=== PATIENT | male | born 1950 | race Caucasian/White ===

== ENCOUNTER → 2024-07-09 09:14 | Outpatient (REF) | payer MEDICARE, OTHER, SELFPAY | LOC: HWRCS 09:14 | PROVIDERS: ATTENDING PHYSICIAN Internal Medicine Cardiovascular Disease; FAMILY PHYSICIAN Family Medicine | DX: I35.1 Nonrheumatic aortic (valve) insufficiency (principal) | CPT/HCPCS: 93306 ==

== ENCOUNTER 2024-12-22 14:52 | Emergency (ER) | payer MEDICARE, OTHER, SELFPAY ==
[2024-12-22] VITALS (9 sets, daily range): BP systolic 128–171; BP diastolic 67–88; BMI 25.7
[2024-12-22 15:49] LABS: % Basophils 0.2 % (0-2); % Immature Granulocytes 0.2 % (0-0.5); % Lymphocytes 18.7 % (20.5-51.1); % Monocytes 11.1 % (1.7-9.3); % Neutrophils 68.8 % (42.2-75.2); Absolute Eosinophils 0.1 10^3/uL (0-0.7); Absolute Lymphocytes 1.1 10^3/uL (1.2-3.4); Absolute Monocytes 0.7 10^3/uL (0.1-0.6); Absolute Neutrophils 4.1 10^3/uL (1.4-6.5); Hematocrit 42.8 % (39.0-52.0); Mean Corpuscular Hgb 32.3 pg (27.0-31.0); Mean Corpuscular Volume 92.2 fL (80.0-94.0); Nucleated Red Blood Cells % 0 % (-); Platelet Count 192 10^3/uL (130-400); Red Blood Cell Count 4.64 10^6/uL (4.70-6.10); Red Cell Dist. Width 12.4 % (11.5-14.5); White Blood Cell Count 5.9 10^3/uL (4.8-10.8)
[2024-12-22 16:02] LABS: ALT (SGPT) 21 U/L (0-50); AST (SGOT) 26 U/L (17-59); Albumin 4.4 g/dl (3.5-5.0); Alkaline Phosphatase 69 U/L (38-126); Blood Urea Nitrogen 19 mg/dl (9-20); Calcium 10.2 mg/dl (8.4-10.2); Carbon Dioxide 27 mmol/L (22-30); Chloride 109 mmol/L (98-107); Glucose 144 mg/dl (70-99); Sodium 144 mmol/L (135-145); Total Bilirubin 1.4 mg/dl (0.2-1.3); Total Protein 7.2 g/dl (6.3-8.2); eGFR > 60.00
[2024-12-22 16:14] LABS: Troponin I < 0.012 ng/ml
--- NOTE | 2024-12-22 18:14 | ED.GENMED ---
History of Present Illness
<RAMIRO Larson - Last Filed: 12/22/24 19:15>
General
Chief Complaint: Chest Pain
Source: patient
Exam Limitations: none
Time Seen by Provider: 12/22/24 17:51
Nursing documentation reviewed up to this point in time: agreed with
History of Present Illness
History of Present Illness:
Patient is a 74-year-old male with past medical history of ascending aortic aneurysm followed by cardiology presents to the ER for evaluation. Patient reports he ate crackers in bed last night and around 2 AM noticed some burning in his epigastric
area. Is been intermittent throughout the day and is very mildly there. He took Prevacid prior to arrival and feels that it is improving. He denies any chest pain .shortness of breath. back pain. He reports he normally walks daily and walked
his mile today without any symptoms.
Past History
<RAMIRO Larson - Last Filed: 12/22/24 19:15>
Past History
ED Past Medical History: GERD, HTN, Valvular disease (/yivraw-[id number] on echo from 09/2018), Psychiatric (anxiety) and Other (GI bleed)
ED Past Surgical History: Other (Agree with documented past surgical history)
Social History
Tobacco: Non-smoker
Alcohol: Occasional
Personal: Single
Living: with family
Employment: Retired
Phy Exam
<RAMIRO Larson - Last Filed: 12/22/24 19:15>
General Physical Exam
General age: appears stated age
General Skin: warm and dry
General Habitus: normal
General Mental: alert
General Hydration: appears well hydrated
Cardiovascular Exam
Cardiovascular Exam: regular rate/rhythm, no murmur and normal peripheral pulses
Pulmonary Exam
Pulmonary Exam: lungs clear and no respiratory distress
Neurological Exam
Neurological Exam: alert and oriented x3
Musculoskeletal Exam
Musculoskeletal Exam: full ROM
Skin Exam
Skin Exam: normal color and warm/dry
Psychiatric Exam
Psychiatric Exam: normal mood/affect
Scores
<Lonny Delacruz DO - Last Filed: 12/24/24 12:06>
Heart Score for Chest Pain Patients
STEMI patient?: No
History: Slightly or Non-Suspicious
ECG: Nonspecific Repolarization
Age: >/= 65 years
Risk Factors: >/= 3 Risk Factors or History of CAD
Troponin: >1 - <3 x Normal Limit
Heart Score for Chest Pain Patients: 6
Heart Score Risk: 20.3% MACE over next 6 weeks
Course
<RAMIRO Larson - Last Filed: 12/22/24 19:15>
Orders/Labs/Results
Orders:
Orders
12/22/24 14:52
ECG [Electrocardiogram (*1)] Urgent
Reason for Study: Chest Pain
12/22/24 14:53
EKG- Treatment ONCE
12/22/24 15:37
Complete Blood Count/With Diff Urgent
Comprehensive Metabolic Panel Urgent
Troponin I Urgent
12/22/24 18:34
CT Chest Angio W/wo Iv Contras Urgent
Comment:
Reason For Exam: known aneurysm/ MS chest pain
12/22/24 18:38
Cardiac Monitoring- Treatment ONCE
IV Insert/Care/Rem.- Treatment PRN
0.9% Sodium Chloride 1000 ml [Nss] 1,000 ml IV BOLUS
12/22/24 22:28
Mag Hydrox/Al Hydrox/Simeth [Maalox] 30 ml Phenobarb/Hyoscy/Atropine/Scop [] 10 ml Viscous Lidocaine 2% [Xylocaine Viscous Cup] 10 ml PO NOW
12/22/24 22:32
Mag Hydrox/Al Hydrox/Simeth [Maalox] 30 ml .ROUTE .STK-MED ONE
Phenobarb/Hyoscy/Atropine/Scop [] 10 ml .ROUTE .STK-MED ONE
Viscous Lidocaine 2% [Xylocaine Viscous Cup] 15 ml .ROUTE .STK-MED ONE
Abnormal Lab Results
12/22/24
15:37
RBC 4.64 L 10^6/uL
(4.70-6.10)
MCH 32.3 H pg
(27.0-31.0)
Absolute Lymphs (auto) 1.1 L 10^3/uL
(1.2-3.4)
Absolute Monos (auto) 0.7 H 10^3/uL
(0.1-0.6)
Lymphocytes % 18.7 L %
(20.5-51.1)
Monocytes % 11.1 H %
(1.7-9.3)
Chloride 109 H mmol/L
(98-107)
Glucose 144 H mg/dl
(70-99)
Total Bilirubin 1.4 H mg/dl
(0.2-1.3)
12/22/24 15:37
12/22/24 15:37
Vital Signs
Initial and Last Documented VS:
Initial Vital Signs
Temp Pulse Resp BP Pulse Ox
98.5 F 94 16 168/80 99
12/22/24 15:20 12/22/24 15:20 12/22/24 15:20 12/22/24 15:20 12/22/24 15:20
Last Documented Vital Signs
Temp Pulse Resp BP Pulse Ox
98.5 F 74 13 157/68 97
12/22/24 15:20 12/22/24 23:00 12/22/24 23:00 12/22/24 23:00 12/22/24 23:00
Christinalt;Lonny Delacruz DO - Last Filed: 12/24/24 12:06>
Orders/Labs/Results
Orders:
Orders
12/22/24 14:52
ECG [Electrocardiogram (*1)] Urgent
Reason for Study: Chest Pain
12/22/24 14:53
EKG- Treatment ONCE
12/22/24 15:37
Complete Blood Count/With Diff Urgent
Comprehensive Metabolic Panel Urgent
Troponin I Urgent
12/22/24 18:34
CT Chest Angio W/wo Iv Contras Urgent
Comment:
Reason For Exam: known aneurysm/ MS chest pain
12/22/24 18:38
Cardiac Monitoring- Treatment ONCE
IV Insert/Care/Rem.- Treatment PRN
0.9% Sodium Chloride 1000 ml [Nss] 1,000 ml IV BOLUS
12/22/24 22:28
Mag Hydrox/Al Hydrox/Simeth [Maalox] 30 ml Phenobarb/Hyoscy/Atropine/Scop [] 10 ml Viscous Lidocaine 2% [Xylocaine Viscous Cup] 10 ml PO NOW
12/22/24 22:32
Mag Hydrox/Al Hydrox/Simeth [Maalox] 30 ml .ROUTE .STK-MED ONE
Phenobarb/Hyoscy/Atropine/Scop [] 10 ml .ROUTE .STK-MED ONE
Viscous Lidocaine 2% [Xylocaine Viscous Cup] 15 ml .ROUTE .STK-MED ONE
Abnormal Lab Results
12/22/24
15:37
RBC 4.64 L 10^6/uL
(4.70-6.10)
MCH 32.3 H pg
(27.0-31.0)
Absolute Lymphs (auto) 1.1 L 10^3/uL
(1.2-3.4)
Absolute Monos (auto) 0.7 H 10^3/uL
(0.1-0.6)
Lymphocytes % 18.7 L %
(20.5-51.1)
Monocytes % 11.1 H %
(1.7-9.3)
Chloride 109 H mmol/L
(98-107)
Glucose 144 H mg/dl
(70-99)
Total Bilirubin 1.4 H mg/dl
(0.2-1.3)
12/22/24 15:37
12/22/24 15:37
Vital Signs
Initial and Last Documented VS:
Initial Vital Signs
Temp Pulse Resp BP Pulse Ox
98.5 F 94 16 168/80 99
12/22/24 15:20 12/22/24 15:20 12/22/24 15:20 12/22/24 15:20 12/22/24 15:20
Last Documented Vital Signs
Temp Pulse Resp BP Pulse Ox
98.5 F 74 13 157/68 97
12/22/24 15:20 12/22/24 23:00 12/22/24 23:00 12/22/24 23:00 12/22/24 23:00
<RAMIRO Larson - Last Filed: 12/22/24 19:15>
MDM/Problems Addressed
MDM/Problems Addressed:
Patient is a 74-year-old male with known abdominal aortic aneurysm hypertension moderate to severe aortic regurgitation and mild tricuspid regurgitation presents to the ER for evaluation of midsternal chest burning. He notices at 2:30 in the
morning. He reports he was eating crackers last night and questions that this is likely reflux. He complains of very minimal burning discomfort. He denies any actual chest pain he denies any abdominal pain. Denies any radiation to back. His
cardiac event is negative no acute rise in EKG however with no aneurysm Case reviewed with ED physician will CAT scan .
If CAT scan is negative which is likely this is most likely reflux.
1914: Care of patient this time transferred to DR Delacruz.
<RAMIRO Larson - Last Filed: 12/22/24 19:15>
Data Reviewed
Review of Other/Old Records Reveals: Radiology Studies (CAT scan reviewed from July 2023 shows ectasia ascending aorta 4.1 cm ) and Other (Echo from June 2024 reviewed shows EF of 55 to 60%)
<Lonny Delacruz DO - Last Filed: 12/24/24 12:06>
*Critical Care Note
Total Time (30-74mins, 75-104mins- exclusive of procedures): Not Applicable
ED Attending Note
<RAMIRO Larson - Last Filed: 12/22/24 19:15>
-
Portions of this chart may have been created with voice recognition software.� Occasional wrong word or��sound alike� substitutions may have occurred due to the inherent limitations of voice recognition software.
<Lonny Delacruz DO - Last Filed: 12/24/24 12:06>
ED Attending Note
Patient seen and examined by attending physician: Yes
I performed the substantive portion of visit, reviewed & personally made and approve the management plan that is documented in note by myself or OSCAR.: Yes
ED Attending Note:
Seen with TELEPHONE CLERK examined independently agree with assessment and plan workup noted, patient feeling better after GI cocktail follow-up with his PCP and cardiology
Discharge Plan
Departure
Patient Disposition: Home (Routine Discharge)
Date of Disposition: 12/22/24
Time of Disposition: 23:13
Patient with high blood pressure during this ER visit?: No
Covid-19: Not Applicable
Discharge Problem:
GERD
Instructions: Acid Reflux and GERD in Adults (DC), Chest Pain CBC Follow Up, BLOOD PRESSURE
Prescriptions:
No Action
calcium polycarbophil [Fiber-Tabs] 625 MG tablet
2 tab PO DAILY
buspirone 10 MG tablet
10 mg PO TID
Iron
65 mg PO DAILY
mupirocin 1 APPLIC ointment
1 applic intranasal BID Qty: 1 0RF
Patient Comments:
TOOK MUPIROCIN THIS AM 02/03/22
sennosides [senna] 8.6 MG tablet
17.2 mg PO BID 0RF
diazepam 2 MG tablet
2 mg PO BID Qty: 20 0RF
docusate sodium 100 MG capsule
100 mg PO BID 0RF
aspirin 81 MG tablet,chewable
81 mg PO DAILY Qty: 28 0RF
Rx Instructions:
Take daily with food x4 weeks for blood clot prevention.
prednisone 10 MG tablet
30 mg PO TAPER Qty: 12 0RF
Rx Instructions:
3 tabs (30mg) x2 days, 2 tabs (20mg) x2 days, 1 tab (10mg) x2 days, then stop
hydromorphone 2 MG tablet
2 mg PO Q6HPRN PRN (Reason: moderate-severe pain) Qty: 25 0RF
Rx Instructions:
1 tab moderate breakthrough pain, 2 tab if severe.
Dx total joint. Ongoing therapy.
acetaminophen 500 MG tablet
1,000 mg PO Q6H Qty: 60 0RF
Rx Instructions:
Do NOT exceed >4000 mg daily.
losartan 25 MG tablet
25 mg PO DAILY Qty: 0 0RF
Rx Instructions:
Hold if systolic blood pressure <130 while on Dilaudid.
lansoprazole [Prevacid] 15 MG capsule,delayed release(DR/EC)
15 mg PO DAILY Qty: 0 0RF
Rx Instructions:
Take daily while on Aspirin.
Referrals:
Henry Nobles DO [Family Provider] - Next open appointment
Dutch Lawrence MD [Active] - Next open appointment
Activity Restrictions/Additional Instructions:
As discussed you may continue your Prevacid.
follow-up with family doctor as well as your heater operator helper in the next several days for reevaluation.
Return if any worsening of symptoms.
Interventions
Interventions:
*Risk Screen - Suicide Last Done: 12/22/24 15:20
*General Assessment Last Done: 12/22/24 15:20
*Neglect/Abuse Screening Last Done: 12/22/24 15:20
*ED- Fall Risk Assessment Last Done: 12/22/24 15:20
*ED COVID-19 Vaccine History Last Done: 12/22/24 15:20
*Nursing Disposition Last Done: 12/22/24 23:27
ED- Cardiac Assessment Last Done: 12/22/24 18:28
Discharge Date and Time
Discharge Date/Time: 12/22/24 23:28
Print Language: INDIAN
[2024-12-22] MEDS: NSS 1000 IV (18:56)
[2024-12-22] MEDS: MAALOX 50 PO (22:34)
== END 2024-12-22 23:28 | disposition home or self-care (01) ==
LOC: EMR 14:52
PROVIDERS: EMERGENCY PHYSICIAN Emergency Medicine; FAMILY PHYSICIAN Family Medicine
DX: K21.9 Gastro-esophageal reflux disease without esophagitis (principal); R07.89 Other chest pain; K30 Functional dyspepsia; I71.21 Aneurysm of the ascending aorta, without rupture; I10 Essential (primary) hypertension; I38 Endocarditis, valve unspecified; F41.9 Anxiety disorder, unspecified; K57.90 Diverticulosis of intestine, part unspecified, without perforation or abscess without bleeding; M19.90 Unspecified osteoarthritis, unspecified site; H40.9 Unspecified glaucoma; H26.9 Unspecified cataract; Z79.82 Long term (current) use of aspirin
CPT/HCPCS: 99284; 96360; 71275; 80053; 84484; 85025; 93005; Q9967

== ENCOUNTER → 2025-07-15 09:06 | Outpatient (REF) | payer MEDICARE, OTHER, SELFPAY | LOC: HWRCS 09:06 | PROVIDERS: ATTENDING PHYSICIAN Internal Medicine Cardiovascular Disease; FAMILY PHYSICIAN Family Medicine | DX: I35.1 Nonrheumatic aortic (valve) insufficiency (principal) | CPT/HCPCS: 93306 ==

== ENCOUNTER → 2025-07-18 08:47 | Outpatient (REF) | payer MEDICARE, OTHER, SELFPAY ==
[2025-07-18 12:54] LABS: Hematocrit 42.6 % (39.0-52.0); Hemoglobin 14.3 g/dL (13.0-18.0); Mean Corp Hgb Conc. 33.6 g/dL (33.0-37.0); Mean Corpuscular Volume 93.8 fL (80.0-94.0); Nucleated Red Blood Cells % 0 % (-); Platelet Count 213 10^3/uL (130-400); Red Cell Dist. Width 12.7 % (11.5-14.5)
[2025-07-18 13:00] LABS: ALT (SGPT) 21 U/L (0-50); AST (SGOT) 26 U/L (17-59); Albumin 4.4 g/dl (3.5-5.0); Alkaline Phosphatase 63 U/L (38-126); Blood Urea Nitrogen 19 mg/dl (9-20); Calcium 9.8 mg/dl (8.4-10.2); Carbon Dioxide 29 mmol/L (22-30); Chloride 106 mmol/L (98-107); Glucose 108 mg/dl (70-99); HDL Cholesterol 58 mg/dl; LDL Cholesterol, Calculated 63 mg/dl; Potassium 4.8 mmol/L (3.5-5.1); Sodium 139 mmol/L (135-145); Total Protein 7.2 g/dl (6.3-8.2); Very Low Density Lipoprotein 13 mg/dl (0-30); eGFR > 60.00
[2025-07-18 13:29] LABS: TSH 1.12 uIU/ml (0.47-4.68)
== END ==
LOC: HWLAB 08:47
PROVIDERS: ATTENDING PHYSICIAN Family Medicine
DX: I10 Essential (primary) hypertension (principal); I70.0 Atherosclerosis of aorta; F41.1 Generalized anxiety disorder
CPT/HCPCS: 36415; 80053; 80061; 84443; 85025